=== PATIENT | female | born 2000 | race Caucasian/White ===

== ENCOUNTER 2024-01-19 19:44 | Emergency (ER) | payer SELFPAY ==
[2024-01-19] MEDS ORDERED: Acetaminophen 500 MG TAB ONE (21:08)
[2024-01-19] MEDS ORDERED: Dexamethasone 10 MG/ML VIAL ONE (21:08)
== END 2024-01-19 21:20 | disposition home or self-care (01) ==
LOC: CSHERS 19:44
DX: B34.9 Viral infection, unspecified (principal)
CPT/HCPCS: 87081; 87430; 99283; J1100

== ENCOUNTER 2024-01-21 21:45 | Emergency (ER) | payer SELFPAY ==
[2024-01-21 23:55] LABS: Bilirubin Neg (Negative); Blood, Urine Negative (Negative); Clarity Clear (Clear); Glucose, Urine (Dipstick) Normal (Negative); Ketone, Urine 5 mg/dL (Negative); Leukocyte Negative (Negative); Nitrite Negative (Negative); Protein, Urine (Dipstick) Negative (Neg-Trace); Urobilinogen Normal mg/dL (Less than 2)
[2024-01-22 00:54] LABS: Influenza A by NAA Not Detected (NotDetected); Influenza B by NAA Not Detected (NotDetected); SARS-CoV-2 NAA Rapid Test Not Detected (NotDetected)
[2024-01-22 00:56] LABS: Bacteria/HPF None Seen HPF (None Seen); RBC/HPF None Seen HPF (0-3); Squamous Epithelial 0-3 HPF (0-3); WBC/HPF None Seen HPF (0-3)
== END 2024-01-22 01:15 | disposition home or self-care (01) ==
LOC: CSHERS 21:45
DX: B34.9 Viral infection, unspecified (principal); Z75.3 Unavailability and inaccessibility of health-care facilities
CPT/HCPCS: 81001; 99283